=== PATIENT | male | born 1970 | race Caucasian/White ===

== ENCOUNTER → 2018-03-30 | Day surgery (SDC) | payer BC ==
[~2018-03-30] MED LIST: LIDOCAINE 1% PF 2 ML VIAL. ID; LIDOCAINE 2% PF Vial for OR 5 ML VIAL.; MIDAZOLAM HCL/PF 2 MG/2 ML VIAL. IV; PROPOFOL 40 ML IV; fentaNYL PF VIAL 100 MCG/2 ML VIAL IV
[2018-03-30] MEDS: IV RINGERS,LACTATED 1000ML 1,000 ML IV (07:58)
== END | disposition home or self-care (01) ==
LOC: SURG 07:24
DX: Z12.11 Encounter for screening for malignant neoplasm of colon (principal); K57.30 Diverticulosis of large intestine without perforation or abscess without bleeding; K64.0 First degree hemorrhoids; I10 Essential (primary) hypertension; M19.90 Unspecified osteoarthritis, unspecified site; Z80.0 Family history of malignant neoplasm of digestive organs; Z82.49 Family history of ischemic heart disease and other diseases of the circulatory system; Z72.89 Other problems related to lifestyle; F17.210 Nicotine dependence, cigarettes, uncomplicated
CPT/HCPCS: 45378; J2001; J2704

== ENCOUNTER → 2018-07-13 | Outpatient (CLI) | payer BC ==
[2018-03-30 09:08] VITALS: BP 111/68
[~2018-07-13] MED LIST changes: +CELE100C PO; +GABA-587 PO; -LIDOCAINE 1% PF 2 ML VIAL. ID; -LIDOCAINE 2% PF Vial for OR 5 ML VIAL.; +LISI1TAB7 PO; -MIDAZOLAM HCL/PF 2 MG/2 ML VIAL. IV; -PROPOFOL 40 ML IV; +TRAM50TA PO; -fentaNYL PF VIAL 100 MCG/2 ML VIAL IV
--- NOTE | 2018-07-13 10:02 | KCIC ---
MRI Lumbar Spine without contrast History: Low back pain, back spasms, pain worse the 6 months, bilateral lower extremity numbness Technique: Multiplanar, multi sequential noncontrast MR imaging was performed of the lumbar spine. Contrast: None Comparison: None Findings: Lumbar vertebral body stature is maintained. There is minimal posterior subluxation L5 relative to S1 and L4 relative to L5. There is moderate to severe degenerative disc disease L5-S1, mild to moderate degenerative disc disease at L4-5, mild disc desiccation at L2-3. Conus terminates at L1-2. There is no significant marrow edema. L2-L3: There is negligible disc osteophyte complex. This level was not included on the axial images, no significant spinal stenosis or neural foramina compromise. L3-L4: There is minimal facet degenerative change, buckling of the ligamentum flavum, prominence of posterior epidural fat. There is minimal disc osteophyte complex eccentric to the inferior neural foramina bilaterally. Spinal canal is adequate. Neural foramina are overall adequate. L4-L5: There is minimal disc osteophyte complex, superimposed shallow protrusion more eccentric to the left lateral recess. There is [id number] narrowing of the left lateral recess, contact of the descending left L5 nerve root. There is mild facet degenerative change. There is mild narrowing of the left neural foramen, right neural foramen adequate. L5-S1: There is minimal disc osteophyte complex and bulge without significant impingement of the descending S1 nerve roots. Spinal canal is overall adequate. There is mild narrowing of the left neural foramen, right neural foramen adequate. Impression: 1. 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 2. There is mild narrowing of left L4-5 and L5-S1 neural foramina. 3. There is moderate to severe degenerative disc disease L5-S1, to lesser degree at L4-5. There is minimal posterior subluxation L5 relative to S1 and L4 relative to L5. Electronically signed by: Dano Mirza MD (07/13/2018 9:58 AM) [id number]
== END | disposition home or self-care (01) ==
LOC: KCIC MRI 08:45
PROVIDERS: ATTEND Nurse Practitioner Family
DX: M51.37 Other intervertebral disc degeneration, lumbosacral region (principal); M48.061 Spinal stenosis, lumbar region without neurogenic claudication; M48.07 Spinal stenosis, lumbosacral region
CPT/HCPCS: 72148